=== PATIENT | male | born 1970 | race Caucasian/White ===

== ENCOUNTER 2024-03-23 19:38 | Emergency (ER) | payer OTHER, SELFPAY ==
[2024-03-23 19:38] VITALS: BP 116/82; PULSE 77; RESP 16; TEMP 36.8; O2SAT 98; BMI 29.4
--- NOTE | 2024-03-23 20:15 | RAD_ITS ---
EXAM: XR RIGHT ELBOW COMPLETE, 3 OR MORE VIEWS CLINICAL INDICATION: fall, pain TECHNIQUE: Frontal, lateral and oblique views of the right elbow. COMPARISON: No relevant prior studies available. FINDINGS: BONES/JOINTS: Spurring of the coronoid process. There is no displacement of the anterior or posterior fat pads. No acute fracture. No subluxation. Normal alignment. Preservation of the joint space. No destructive or sclerotic lesions. SOFT TISSUES: No significant abnormality. No soft tissue swelling or gas. No radiopaque foreign body. RAD/Elbow min 3 Views IMPRESSION: Degenerative change. No acute findings. Electronically Signed: Cristi Christy DO at 21:04 EST ,
--- NOTE | 2024-03-23 20:15 | RAD_ITS ---
EXAM: XR RIGHT SHOULDER COMPLETE, 2 OR MORE VIEWS CLINICAL INDICATION: fall pain. TECHNIQUE: Two or more views of the right shoulder. COMPARISON: 09/01/2023 FINDINGS: BONES/JOINTS: Age indeterminant fracture of the distal right clavicle and moderate acromioclavicular joint arthrosis. Moderate glenohumeral joint arthrosis. No sclerotic or destructive changes observed. SOFT TISSUES: No significant abnormality. No soft tissue swelling or gas. No radiopaque foreign body. RAD/Shoulder min 2 Views IMPRESSION: 1. Age indeterminant fracture of the distal right clavicle and moderate acromioclavicular joint arthrosis. 2. Moderate glenohumeral joint arthrosis. Electronically Signed: Cristi Christy DO at 21:02 EST ,
[2024-03-23] MEDS: Ketorolac 30 MG/ML Syringe IM (20:58)
--- NOTE | 2024-03-23 21:39 | EX.ED.DYSGE1 ---
HPI History of Present Illness Chief Complaint: Fall Narrative Narrative: Patient is a 54-year-old male who presented to the emerged part with a chief complaint of right shoulder pain. He states that he was getting out of his vehicle earlier and noted that he slipped on ice and he tried to catch himself. He states that he did hit his back against a vehicle but noted that his arm twisted and has been very painful for him therefore he came here for the valuation management. Patient states that he did not take anything for pain prior to arrival. Patient states that he did not hit his head he did not pass out he remembers everything. Patient denies any blood thinning medications. PFSH PFSH Home Medications ?Medication ?Instructions ?Recorded ?Last Taken ?Type ondansetron 4 mg disintegrating 4 mg PO Q6H PRN nausea and 03/23/24 Unknown Rx tablet vomiting #20 tabs oxycodone-acetaminophen 5 mg-325 1 tab PO Q6H PRN pain 3 days #12 03/23/24 Unknown Rx mg tablet (Endocet) tabs Allergy/AdvReac Type Severity Reaction Status Date / Time divalproex sodium (From Allergy Severe Other Verified 03/23/24 19:39 Depakote) lithium Allergy Severe Other Verified 03/23/24 19:39 ROS ROS ED ROS Narrative Constitutional: Denies any headaches, lightness, dizziness, fevers, chills Eyes: Denies change in vision double vision blurry vision Cardiovascular: Denies chest pain or palpitations Respiratory: Denies coughing wheezing shortness of breath Abdomen: Denies abdominal pain nausea vomit diarrhea Neurological: Denies numbness, weakness, tingling Musculoskeletal: Complains of right shoulder pain as noted above Skin: Denies any rashes or lesions EXAM Physical Exam Narrative Exam Narrative: General: Patient was lying in bed rest comfortably did not appear to be acute distress Head: Atraumatic, normocephalic Eyes: PERRL bilaterally, EOMI bilateral no conjunctival injection noted Neck: Soft, supple, trachea midline Cardiovascular: Regular rate and rhythm no murmurs gallops rubs noted Respiratory: Clear to auscultation bilaterally Abdomen: Soft, nondistended, nontender to palpation, bowel sounds present x 4 Musculoskeletal: Patient has tenderness palpation over the right shoulder region, although bony prominences and joints taken through full range of motion no pain elicited Extremities: +5/5 strength noted in the bilateral upper and lower extremities, radial pulses +2/4 in the bilateral upper extremities Neurological: Patient following commands knew that he was at [facility] year is 2024. Sensation grossly intact in the axillary, ulnar radial nerve and median nerve distributions bilaterally Skin: Warm, dry, intact no rashes or lesions noted Const Vital Signs: 03/23/24 19:38 Temperature 98.2 F Temperature Source Oral Pulse Rate 77 Respiratory Rate 16 Blood Pressure 116/82 H Blood Pressure Mean 93 Pulse Ox 98 Oxygen Delivery Method Room Air MDM MDM MDM Narrative Medical decision making narrative: Patient is a 54-year-old male who present to the emergency department chief complaint of right shoulder pain after a fall earlier today. On the differential diagnose includes but limited to proximal humerus fracture, musculoskeletal strain, clavicle fracture. Once workup is obtained reviewed he will be reevaluated. Patient did drive. Therefore he will be given IM Toradol. Patient's x-ray of right shoulder was reviewed and showed age-indeterminate fracture of the distal right clavicle and moderate acromioclavicular joint arthrosis. Patient has tenderness to palpation over the distal clavicle, moderate glenohumeral joint arthrosis. Elbow x-ray was reviewed as well which showed no acute findings degenerative changes. These were both reviewed by myself and by radiology. On reevaluation the patient I did discuss results with him. Patient did drive here once again therefore will not be able to give him any type of narcotic. Patient will be placed in a sling and given orthopedic follow-up. He was encouraged to rotate Tylenol and ibuprofen [id number]. He will given a prescription for Percocet and Zofran once again was advised to not operate anything under the influence of these medications. He is agreeable this plan all question concerns answered he is discharged home in stable condition. Radiography Diagnostic Testing: Clinical Impression(s) from Imaging Studies Elbow X-Ray 03/23/24 20:15 IMPRESSION: Degenerative change. No acute findings. Electronically Signed: Cristi Christy DO at 21:04 EST , Shoulder X-Ray 03/23/24 20:15 IMPRESSION: 1. Age indeterminant fracture of the distal right clavicle and moderate acromioclavicular joint arthrosis. 2. Moderate glenohumeral joint arthrosis. Electronically Signed: Cristi Christy DO at 21:02 EST , Discharge Plan Triage Chief Complaint: Fall ED Provider: Arun Szymanski Dx/Rx/DC Orders Clinical Impression: Closed fracture of right clavicle, Acute pain of right shoulder Prescriptions: New oxycodone-acetaminophen [Endocet] 5-325 mg tablet 1 tab PO Q6H PRN (Reason: pain) 3 Days Qty: 12 0RF ondansetron 4 mg tablet,disintegrating 4 mg PO Q6H PRN (Reason: nausea and vomiting) Qty: 20 0RF [facility] Care Provider: [facility]errals: [facility] [Primary Care Provider] - Leeroy Edmonds DO [[facility] Staff - Active Staff] - Activity Restrictions/Additional Instructions: Follow-up with the orthopedic surgeon that you referred to or follow-up with 1 at the [place] [facility]. Return with worsening symptoms or other concerns. Rotate Tylenol and ibuprofen [id number] for pain control. Use the Percocet and Zofran as prescribed for severe pain. Do not operate anything under the influence of the Percocet. Print Language: Tunisian Disposition Disposition: Home, Self Care
[2024-03-23 21:51] VITALS: BP 125/85; PULSE 81; RESP 16; TEMP 36.6; O2SAT 100
== END 2024-03-23 22:31 | disposition home or self-care (01) ==
PROVIDERS: Emergency Provider Emergency Medicine; Visit Provider Emergency Medicine
DX: S42.031A Displaced fracture of lateral end of right clavicle, initial encounter for closed fracture (principal); W00.0XXA Fall on same level due to ice and snow, initial encounter